=== PATIENT | male | born 2000 | race Caucasian/White ===

== ENCOUNTER 2022-05-06 18:54 | Emergency (ER) | payer MEDICAID, SELFPAY ==
[2022-05-06] VITALS (36 sets, daily range): BP systolic 72–130; BP diastolic 44–98; PULSE 94–141; RESP 22; TEMP 37.1; O2SAT 93–100; BMI 19.6
--- NOTE | 2022-05-06 19:26 | ED.ANXIETY ---
HPI - Anxiety General Time Seen by Provider: 19:26 Date Seen: 05/06/22 Chief Complaint: Anxiety Stated Complaint: Possible heart attack Time Seen by Provider: 05/06/22 19:26 Source: patient and RN notes reviewed Mode of arrival: ambulatory Limitations: no limitations History of Present Illness HPI narrative: Culture is a very pleasant 22-year-old male with a history of anxiety who comes to the emergency room for evaluation regarding chest pain. Patient notes that he has been dealing with increased anxiety secondary to stressful situations at work for approximately 3 weeks. He notes that as a child he had anxiety and depression and it feels somewhat similar. However, yesterday he started experiencing physical manifestations of the stress as he puts it. He has not had this happen to him in the past. He states he awoke with a migraine on the right behind his eye radiating to the back of his head. He notes that he was still able to go to work at [employer] but had increasing fatigue upon his arrival. He notes that yesterday he had an episode of chest pain left anterior chest which he describes as clenching. He states that radiated into his left arm and lasted a couple of hours. He notes that he left work early was able to relax at home and the discomfort went away. Does not appear to be positional nor did it change with activity, excepted did get better with rest. However returned and a number of hours later. Today he has had at least 2 episodes of this similar feeling but it is not present at this time. When it occurs it is not associated with shortness of breath or any breathing difficulties. He notes no alcohol use, no drug use, no smoking. He notes that he does drink a highly caffeinated coffee approximately 16-20 oz daily. He denies any symptoms of COVID recently but does note that he had an episode of vomiting x1 last night. He notes no abdominal pain. No diarrhea at this time although last week he had some loose stools thought to be related to recent exposure to illness in his girlfriend's kids. No nausea or vomiting today. He denies fever but does note that he gets very sweaty when and feels warm at times. Patient is very concerned as he does not have insurance. He is advised to apply for [place] since rinses soon as possible in the hopes that this can be retroactive. Related Data Allergies Allergy/AdvReac Type Severity Reaction Status Date / Time No Known Drug Allergies Allergy Verified 05/06/22 19:00 Review of Systems Status of ROS: Reports: 10 or more systems reviewed and unremarkable except as noted in History and below Const: Denies: fever Eyes: Denies: change in vision ENMT: Denies: throat pain, neck pain or difficulty swallowing Cardio: Reports: chest pain and other (Denies history of DVT, swollen calves, immobility); Denies: palpitations, edema, swelling of feet/ankles or shortness of breath with exertion Resp: Denies: shortness of breath, cough or wheezing GI: Reports: vomiting (1 episode last night none today); Denies: abdominal pain, nausea, diarrhea or difficulty swallowing : Denies: painful urination or urinary frequency Musculo: Denies: neck pain Neuro: Reports: headache (Yesterday); Denies: numbness in extremities Psych: Reports: anxiety Allergy/Immuno: Denies: wheezing PFSH PFSH Social History Smoking Status: Never smoker Do you use any of these nicotine containing products: None Second hand tobacco smoke exposure: Yes How often do you have a drink containing alcohol: never How often do you have six or more drinks on one occasion: Never AUDIT-C Alcohol total score: 0 Non-prescribed substance use: denies use service: No Exam Narrative: Exam Narrative: Patient is alert and oriented. Very pleasant young man in no acute distress. Eyes are clear. Head is atraumatic normocephalic. Neck is supple and range of motion is full. Heart with a tachycardic rate hyperdynamic but normal in rhythm. Lungs are clear in all lung perez. Abdomen soft and nontender. Lower extremities without edema or calf tenderness. Negative Homans sign. Const: Vital Signs, click to edit/add: Vital Signs - 24 hr 05/06/22 19:00 05/06/22 19:12 05/06/22 19:15 Temperature 98.7 F Pulse Rate 114 H 115 H Pulse Rate [Femora l] 114 H Respiratory Rate 22 Blood Pressure Blood Pressure [Ri ght Upper Arm] 129/44 L Pulse Oximetry 99 100 100 Oxygen Delivery Me thod Room Air 05/06/22 19:30 05/06/22 19:32 05/06/22 19:45 Temperature Pulse Rate 110 H 113 H 103 H Pulse Rate [Femora l] Respiratory Rate Blood Pressure 121/90 H Blood Pressure [Ri ght Upper Arm] Pulse Oximetry 98 99 98 Oxygen Delivery Me thod 05/06/22 20:00 05/06/22 20:02 05/06/22 20:15 Temperature Pulse Rate 114 H 112 H 110 H Pulse Rate [Femora l] Respiratory Rate Blood Pressure 103/72 Blood Pressure [Ri ght Upper Arm] Pulse Oximetry 100 100 98 Oxygen Delivery Me thod 05/06/22 20:30 05/06/22 20:31 05/06/22 20:32 Temperature Pulse Rate 126 H 118 H 126 H Pulse Rate [Femora l] Respiratory Rate Blood Pressure 113/73 Blood Pressure [Ri ght Upper Arm] Pulse Oximetry 99 100 100 Oxygen Delivery Me thod 05/06/22 20:51 05/06/22 21:00 05/06/22 21:02 Temperature Pulse Rate 125 H 120 H 120 H Pulse Rate [Femora l] Respiratory Rate Blood Pressure 123/82 130/78 Blood Pressure [Ri ght Upper Arm] Pulse Oximetry 93 96 100 Oxygen Delivery Me thod Documenting provider has reviewed patient's vital signs: yes Course Course Hospital Course: Patient notes history of anxiety but never with physical manifestations. At this time he has had at least 4 episodes of anterior chest pain with radiation to the left arm in association with persistent tachycardia. He notes no fever but does describe feeling warm occasionally and getting very sweaty. Differential diagnosis includes but is not limited to acute coronary disease, COVID, URI, strep, anxiety, pericarditis, myocarditis, pneumonia, PE. At this time oxygen levels are 99% the patient has persistent tachycardia at 108-117. Will obtain EKG, troponin, CBC, comprehensive panel, CRP, TSH, magnesium, D-dimer. Will give 1 L of normal saline and have an IV placed. Suggest chest x-ray at this time. Patient is receptive to our plan. Reevaluation(s) Reevaluation #1: Patient's troponin has come back elevated at a 0.06. CRP up to 3 but D-dimer and white count are within normal limits. Given these findings I did have the lab do a backup troponin and have ordered CT of the chest PE protocol as I do think we need to make sure patient does not have any vascular abnormalities or pericardial effusion. Reevaluation #2: Patient is requesting to drive himself to [facility]. I did state that he is able to make his own decisions but I advised strongly against that route as he is on a medication to thin his blood and has worrisome cardiac enzymes and EKG. I did state I would need to have him sign AMA. He then asks if he could have a friend drive him and I would state I would have the same opinion and that it is high risk to do something like that. He agrees to aspirin, heparin and ambulance transport. Vital Signs Vital signs: Initial Vital Signs Temperature 98.7 F 05/06/22 19:00 Temperature Source Temporal Artery Scan 05/06/22 19:00 Pulse Rate 114 H 05/06/22 19:00 Pulse Rhythm 05/06/22 19:00 Respiratory Rate 22 05/06/22 19:00 Blood Pressure 129/44 L 05/06/22 19:00 Blood Pressure Mean 72 05/06/22 19:00 Blood Pressure Position Supine 05/06/22 19:00 Pulse Oximetry 99 05/06/22 19:00 Oxygen Delivery Method 05/06/22 19:00 Vital Signs Temperature 98.7 F 05/06/22 19:00 Pulse Rate 114 H 05/06/22 19:00 Respiratory Rate 22 05/06/22 19:00 Blood Pressure 129/44 L 05/06/22 19:00 Pulse Oximetry 99 05/06/22 19:00 Oxygen Delivery Method 05/06/22 19:00 Temperature 98.7 F 05/06/22 19:00 Pulse Rate 120 H 05/06/22 21:02 Respiratory Rate 22 05/06/22 19:00 Blood Pressure 130/78 05/06/22 21:02 Pulse Oximetry 100 05/06/22 21:02 Oxygen Delivery Method 05/06/22 19:00 MDM - Anxiety MDM Narrative Medical decision making narrative: 1. Elevated cardiac enzymes and abnormal [id number] noted in lead 1/2, V3 through V6. Pericarditis versus an acute coronary event. Patient has been pain-free during his stay here. Initial troponin 8 is now 14.9. Persistent tachycardia is noted. Again patient has been pain-free. No shortness of breath, hypoxia, hypotension or fever. Patient adamantly denies any drug use. I had the pleasure of speaking with Dr. Lawson from [facility]. At this time plan is for patient transfer via ambulance to [facility] for consultation, echocardiogram and likely CT angiogram. Per Dr. Lawson instruction this patient is given heparin bolus and drip as well as full-size aspirin. 2. Disposition-ground ALS transport to [facility]. Currently awaiting phone call from [facility] hospitalist. Patient remained stable in the emergency room. I will sign this patient out to my partner Dr. Johnson as he will be speaking with the accepting hospitalist. Lab Data Attestation: I reviewed the patient's lab results. Labs: Lab Results 05/06/22 05/06/22 05/06/22 Range/Units 19:38 19:47 19:47 WBC (4.50-11.00) K/uL RBC (4.30-5.90) m/uL Hgb (13.5-17.5) gm/dL Hct (37.0-53.0) % MCV (80-100) fL MCH (26-34) pg MCHC (32-36) gm/dL RDW Coeff of Pushpa (11.5-15.5) % Plt Count (140-440) K/uL Neut % (Auto) (42.0-72.0) % Lymph % (Auto) (20-44) % Fergus % (Auto) (0.0-11.0) % Eos % (Auto) (0.0-7.0) % Baso % (Auto) (0.0-3.0) % Neut # (Auto) (1.7-7.0) K/uL Lymph # (Auto) (0.90-2.90) K/uL Fergus # (Auto) (0.00-0.90) K/UL Eos # (Auto) (0.00-0.50) K/uL Baso # (Auto) (0.00-0.30) K/uL INR (0.91-1.10) APTT (23-33) Seconds D-Dimer Quant (PE/DVT) (0.00-0.50) ug/ml Sodium (135-149) mmol/L Potassium (3.6-5.1) mmol/L Chloride (96-114) mmol/L Carbon Dioxide (20-32) mmol/L BUN (5-24) mg/dL Creatinine (0.5-1.5) mg/dL Estimated Creat Clear Estimated GFR ml/min Glucose (60-115) mg/dL Calcium (8.4-10.6) mg/dL Magnesium (1.5-2.6) mg/dL Total Bilirubin (0.1-1.5) mg/dL AST (12-35) U/L ALT (4-50) U/L Alkaline Phosphatase (40-150) U/L Troponin I (0.01-0.04) ng/mL C-Reactive Protein (0.5-1.0) mg/dL Total Protein (6.0-8.3) g/dL Albumin (3.3-5.0) g/dL Lipase (23-300) U/L TSH (0.270-4.200) uIU/mL SARS-CoV-2 (PCR) Negative SARS-CoV-2 (Negative) Influenza Type A (PCR) Negative PCR FLU A (Negative) Influenza Type B (PCR) Negative PCR FLU B (Negative) RSV (PCR) Negative PCR RSV (Negative) Group A Strep DNA NOT DETECTED (Not Detectd) POC Troponin I 8.06 H (0.01-0.04) ng/ml 05/06/22 05/06/22 05/06/22 Range/Units 19:48 19:50 19:50 WBC 6.59 (4.50-11.00) K/uL RBC 5.36 (4.30-5.90) m/uL Hgb 14.8 (13.5-17.5) gm/dL Hct 44.4 (37.0-53.0) % MCV 83 (80-100) fL MCH 28 (26-34) pg MCHC 33 (32-36) gm/dL RDW Coeff of Pushpa 12.2 (11.5-15.5) % Plt Count 184 (140-440) K/uL Neut % (Auto) 76.5 H (42.0-72.0) % Lymph % (Auto) 13.1 L (20-44) % Fergus % (Auto) 9.4 (0.0-11.0) % Eos % (Auto) 0.6 (0.0-7.0) % Baso % (Auto) 0.2 (0.0-3.0) % Neut # (Auto) 5.00 (1.7-7.0) K/uL Lymph # (Auto) 0.90 (0.90-2.90) K/uL Fergus # (Auto) 0.60 (0.00-0.90) K/UL Eos # (Auto) 0.04 (0.00-0.50) K/uL Baso # (Auto) 0.01 (0.00-0.30) K/uL INR (0.91-1.10) APTT (23-33) Seconds D-Dimer Quant (PE/DVT) < 0.27 (0.00-0.50) ug/ml Sodium (135-149) mmol/L Potassium (3.6-5.1) mmol/L Chloride (96-114) mmol/L Carbon Dioxide (20-32) mmol/L BUN (5-24) mg/dL Creatinine (0.5-1.5) mg/dL Estimated Creat Clear Estimated GFR ml/min Glucose (60-115) mg/dL Calcium (8.4-10.6) mg/dL Magnesium 2.1 (1.5-2.6) mg/dL Total Bilirubin (0.1-1.5) mg/dL AST (12-35) U/L ALT (4-50) U/L Alkaline Phosphatase (40-150) U/L Troponin I (0.01-0.04) ng/mL C-Reactive Protein (0.5-1.0) mg/dL Total Protein (6.0-8.3) g/dL Albumin (3.3-5.0) g/dL Lipase (23-300) U/L TSH (0.270-4.200) uIU/mL SARS-CoV-2 (PCR) (Negative) Influenza Type A (PCR) (Negative) Influenza Type B (PCR) (Negative) RSV (PCR) (Negative) Group A Strep DNA (Not Detectd) POC Troponin I (0.01-0.04) ng/ml 05/06/22 05/06/22 05/06/22 Range/Units 19:50 20:30 22:17 WBC (4.50-11.00) K/uL RBC (4.30-5.90) m/uL Hgb (13.5-17.5) gm/dL Hct (37.0-53.0) % MCV (80-100) fL MCH (26-34) pg MCHC (32-36) gm/dL RDW Coeff of Pushpa (11.5-15.5) % Plt Count (140-440) K/uL Neut % (Auto) (42.0-72.0) % Lymph % (Auto) (20-44) % Fergus % (Auto) (0.0-11.0) % Eos % (Auto) (0.0-7.0) % Baso % (Auto) (0.0-3.0) % Neut # (Auto) (1.7-7.0) K/uL Lymph # (Auto) (0.90-2.90) K/uL Fergus # (Auto) (0.00-0.90) K/UL Eos # (Auto) (0.00-0.50) K/uL Baso # (Auto) (0.00-0.30) K/uL INR 1.08 (0.91-1.10) APTT 32 (23-33) Seconds D-Dimer Quant (PE/DVT) (0.00-0.50) ug/ml Sodium 135 (135-149) mmol/L Potassium 4.1 (3.6-5.1) mmol/L Chloride 100 (96-114) mmol/L Carbon Dioxide 29 (20-32) mmol/L BUN 8 (5-24) mg/dL Creatinine 0.9 (0.5-1.5) mg/dL Estimated Creat Clear 102.37 Estimated GFR 123 ml/min Glucose 100 (60-115) mg/dL Calcium 8.9 (8.4-10.6) mg/dL Magnesium (1.5-2.6) mg/dL Total Bilirubin 0.9 (0.1-1.5) mg/dL AST 121 H (12-35) U/L ALT 67 H (4-50) U/L Alkaline Phosphatase 49 (40-150) U/L Troponin I 14.90 H* (0.01-0.04) ng/mL C-Reactive Protein 3.0 H (0.5-1.0) mg/dL Total Protein 7.5 (6.0-8.3) g/dL Albumin 4.4 (3.3-5.0) g/dL Lipase 42 (23-300) U/L TSH 1.090 (0.270-4.200) uIU/mL SARS-CoV-2 (PCR) (Negative) Influenza Type A (PCR) (Negative) Influenza Type B (PCR) (Negative) RSV (PCR) (Negative) Group A Strep DNA (Not Detectd) POC Troponin I (0.01-0.04) ng/ml Imaging Data Chest x-ray: Attestation: I have reviewed the pertinent imaging results. My impression: No widened mediastinum Radiologist's impression: No acute findings CT scan - chest: Attestation: I have reviewed the pertinent imaging results. My impression: No obvious infiltrates or large PE Radiologist's impression: Normal lung volumes. Lungs are grossly clear. Heart and mediastinal contours within normal limits. PULMONARY ARTERIES: No focal pulmonary artery filling defects. THORACIC AORTA: Thoracic aorta normal in caliber. No dissection. HEART AND MEDIASTINUM: Heart size normal. No pericardial effusion. No pathologically enlarged mediastinal lymph nodes. LUNGS AND PLEURA: Lungs are clear. No pleural effusions or pneumothorax. CHEST WALL AND SOFT TISSUES: Unremarkable. THYROID GLAND: Normal. UPPER ABDOMEN: Unremarkable. BONES: Unremarkable. IMPRESSION: 1. Negative study. No acute pulmonary embolism. Lungs are clear. ECG Data Attestation: I personally reviewed and interpreted this ECG as follows: ECG interpretation date: 05/06/22 Interpretation: EKG by my read shows sinus tachycardia at a rate of 111. ST-elevation or J-point elevation in I, II, V3 through V6. Critical Care Time Critical Care Time Critical Care Time: Yes Attestation: The patient required my highest level preparedness to intervene emergently and I personally spent this critical care time directly and personally managing the patient. This critical care time included: Obtaining a history; Examining the patient; Pulse oximetry; Ordering and reviewing of studies; Arranging urgent treatment with development of a management plan; Evaluation of patients response to treatment; Frequent reassessment discussions with other providers. This critical care time was performed to assess and manage the high probability of imminent life-threatening deterioration that could result in multiorgan failure. It was exclusive of separate billable procedures and treating other patients and teaching time. Total Critical Care Time in Minutes: 90 Discharge Plan Discharge Clinical Impression: Elevation of cardiac enzymes, Abnormal ECG Patient Disposition: Xfer Acute Care Hospital Discharge Location: [facility] Condition: Improved
--- NOTE | 2022-05-06 19:38 | CRLHL7_ITS ---
For Patients: As a result of the Cures Act, medical imaging exams and procedure reports are released immediately into your electronic medical record. You may view this report before your referring provider. If you have questions, please contact your health care provider. INDICATION: Chest pain, tachycardia TECHNIQUE: Chest radiograph 1 view COMPARISON: CT chest dated 05/06/2022 FINDINGS: Cardiovascular and mediastinum: The heart silhouette is normal in size and morphology. The mediastinum is normal in appearance. Lungs and pleural spaces: Both lungs are unremarkable in appearance. No sign of pleural effusion seen. No pneumothorax is identified. Bones and soft tissues: No significant findings. IMPRESSION: 1. No acute cardiopulmonary disease is seen. Dictated by Chintan Petit MD @ 05/06/2022 9:01:46 PM Dictated by: Chintan Petit MD @ 05/06/2022 21:01:53 (Electronically Signed)
[2022-05-06 20:08] LABS: Basophils Absolute Auto 0.01 K/uL (0.00-0.30); Basophils Percent Auto 0.2 % (0.0-3.0); Eosinophils Absolute Auto 0.04 K/uL (0.00-0.50); Eosinophils Percent Auto 0.6 % (0.0-7.0); Hematocrit 44.4 % (37.0-53.0); Hemoglobin* 14.8 gm/dL (13.5-17.5); Immature Granulocytes Abs Auto 0.01 K/uL (0.00-0.30); Immature Granulocytes Pct Auto 0.2 %; Lymphocytes Percent Auto 13.1 % (20-44); Mean Corpuscular HGB Conc 33 gm/dL (32-36); Mean Corpuscular Hemoglobin 28 pg (26-34); Mean Corpuscular Volume 83 fL (80-100); Monocytes Percent Auto 9.4 % (0.0-11.0); Neutrophils Percent Auto 76.5 % (42.0-72.0); Platelet Count* 184 K/uL (140-440); RDW Coefficient of Variation % 12.2 % (11.5-15.5); Red Blood Count 5.36 m/uL (4.30-5.90); Slide Review Reflex No; White Blood Count* 6.59 K/uL (4.50-11.00)
--- NOTE | 2022-05-06 20:14 | CRLHL7_ITS ---
For Patients: As a result of the Century Cures Act, medical imaging exams and procedure reports are released immediately into your electronic medical record. You may view this report before your referring provider. If you have questions, please contact your health care provider. INDICATION: Chest pain. Elevated troponin. 22-year-old female. TECHNIQUE : CT scan of the chest. CTA PE protocol. IV contrast. IV contrast: Isovue 370 95 mL Please note that all CT scans at this facility use dose modulation, iterative reconstruction and/or weight-based dosing when appropriate to reduce radiation dose to as low as reasonably achievable(ALARA). COMPARISON : No comparison chest CT. FINDINGS: ACQUISITIONS ASSISTANT CT IMAGES: Normal lung volumes. Lungs are grossly clear. Heart and mediastinal contours within normal limits. PULMONARY ARTERIES: No focal pulmonary artery filling defects. THORACIC AORTA: Thoracic aorta normal in caliber. No dissection. HEART AND MEDIASTINUM: Heart size normal. No pericardial effusion. No pathologically enlarged mediastinal lymph nodes. LUNGS AND PLEURA: Lungs are clear. No pleural effusions or pneumothorax. CHEST WALL AND SOFT TISSUES: Unremarkable. THYROID GLAND: Normal. UPPER ABDOMEN: Unremarkable. BONES: Unremarkable. IMPRESSION: 1. Negative study. No acute pulmonary embolism. Lungs are clear. Dictated by Chintan Petit MD @ 05/06/2022 9:25:35 PM Please note that all CT scans at this facility use dose modulation, iterative reconstruction, and/or weight-based dosing when appropriate to reduce radiation dose to as low as reasonably achievable. Dictated by: Chintan Petit MD @ 05/06/2022 21:25:42 (Electronically Signed)
[2022-05-06 20:15] LABS: Troponin, Point-of-Care* 8.06 ng/ml (0.01-0.04)
[2022-05-06 20:26] LABS: Albumin* 4.4 g/dL (3.3-5.0); Chloride* 100 mmol/L (96-114)
[2022-05-06 20:27] LABS: Potassium* 4.1 mmol/L (3.6-5.1); Sodium* 135 mmol/L (135-149)
[2022-05-06 20:29] LABS: Magnesium* 2.1 mg/dL (1.5-2.6)
[2022-05-06 20:29] LABS: Bilirubin Total* 0.9 mg/dL (0.1-1.5); Creatinine* 0.9 mg/dL (0.5-1.5); Est. Creatinine Clearance* 102.37; Estimated Glomerular Filt Rate 123 ml/min
[2022-05-06 20:30] LABS: Alanine Aminotransferase* 67 U/L (4-50); Alkaline Phosphatase* 49 U/L (40-150); Aspartate Amino Transferase* 121 U/L (12-35); Blood Urea Nitrogen* 8 mg/dL (5-24); Calcium* 8.9 mg/dL (8.4-10.6); Carbon Dioxide* 29 mmol/L (20-32); Glucose* 100 mg/dL (60-115); Lipase* 42 U/L (23-300); Total Protein* 7.5 g/dL (6.0-8.3)
[2022-05-06 20:35] LABS: D Dimer Quantitative* < 0.27 ug/ml (0.00-0.50)
[2022-05-06 20:51] LABS: PCR FLU A Negative PCR FLU A (Negative); PCR FLU B Negative PCR FLU B (Negative); PCR RSV Negative PCR RSV (Negative)
[2022-05-06 20:54] LABS: SARS PCR* Negative SARS-CoV-2 (Negative); Strep A DNA Probe* NOT DETECTED (Not Detectd)
[2022-05-06] MEDS: 0.9 % SODIUM CHLORIDE 1000 ml 1,000 ML IV (20:57)
--- NOTE | 2022-05-06 21:13 | ED.NURSE ---
Report given to KOLE Fountain.
[2022-05-06] MEDS: HEPARIN 5,000 UNIT/0.5 ML INJ 3400 UNIT IVP (22:26)
[2022-05-06] MEDS: HEPARIN 25,000 UNIT/500 ML BAG 14 UNIT IV (22:27)
[2022-05-06] MEDS: ASPIRIN 81 MG TAB.CHEW 324 MG PO (22:34)
[2022-05-06 22:43] LABS: INR 1.08 (0.91-1.10); Prothrombin Time 14.7 Seconds
[2022-05-06 22:44] LABS: Partial Thromboplastin Time* 32 Seconds (23-33)
[2022-05-07] VITALS (9 sets, daily range): BP systolic 104–129; BP diastolic 44–73; PULSE 90–114; RESP 22; TEMP 37.1; O2SAT 96–97
--- NOTE | 2022-05-07 00:21 | ED.NURSE ---
Phone report given to Chela SHARIF ([phone]) at [facility]. Patient accepted and will be going to [id number] at [facility].
--- NOTE | 2022-05-07 00:49 | ED.NURSE ---
Patient report given to EMS. Patient care transferred to EMS. Chela soto [facility] updated that patient is on his way to them.
== END 2022-05-07 00:55 | disposition short-term general hospital (02) ==
PROVIDERS: Emergency Provider Family Medicine
DX: R89.0 Abnormal level of enzymes in specimens from other organs, systems and tissues (principal); R94.31 Abnormal electrocardiogram [ECG] [EKG]
CPT/HCPCS: 36415; 71045; 71260; 80053; 83690; 83735; 84443; 84484; 85025; 85379; 85610; 85730; 86140; 87502; 87634; 87635; 87651; 93005; 99285; 99291; 99292; A9270; J1644; J7030; Q9967

== ENCOUNTER 2022-05-07 00:42 | Outpatient (CLI) | payer MEDICAID, SELFPAY | END 2022-05-07 00:43 | disposition home or self-care (01) | PROVIDERS: Visit Provider Family Medicine | DX: I20.9 Angina pectoris, unspecified (principal) | CPT/HCPCS: A0425; A0426; A0427 ==